=== PATIENT | female | born 1980 | race Caucasian/White ===

== ENCOUNTER 2021-02-05 09:25 | Day surgery (SDC) | payer BC ==
[~2021-02-05] VITALS: Ht 160 cm; Wt 75.0 kg
[~2021-02-05 09:25] MED LIST: BENADRYL25 MG PO; BROMOCRIPTINE2.5 MG PO; COZAAR100 MG PO; CYTOMEL5 MCG PO; EFFEXOR XR75 MG PO; HYDROCHLOROTH12.5 MG PO; LEVOTHYROXINE88 MC1 PO; ORTHO TRI-CYCL1 EACH PO
--- NOTE | 2021-02-05 12:44 | NUR ---
02/05/21 1244 Merry Nixon 1224 PT ARRIVED IN PACU SLEEPY WITH NO C/O'S. 1235 C/O ABD PAIN 12/04. DECLINED MEDICINE AT THIS TIME. 1245 RESTING. REU.
--- NOTE | 2021-02-05 13:15 | NUR ---
PT IS BACK TO DS FROM PACU. SHE IS BACK TO HER BASELINE. WATER ON BEDSIDE TABLE. SIGNIFICANT OTHER IS AT THE BEDSIDE. CALL LIGHT WITHIN REACH. NO ADDITIONAL NEEDS AT THIS TIME.
[2021-02-05] MEDS ORDERED: IBUPROFEN800 MG PO (13:31)
[2021-02-05] MEDS ORDERED: PERCOCET 5-3251 EACH PO (13:31)
[2021-02-05] MEDS ORDERED: ONDANSETRON ODT8 MG PO (13:32)
--- NOTE | 2021-02-05 14:41 | NUR ---
PT RECIEVES LUNCH.
--- NOTE | 2021-02-05 15:07 | NUR ---
LE 1500: PT REQUESTS TO GET UP TO USE THE BATHROOM. SHE IS TOLERATING WATER AND FOOD. SHE IS ABLE TO AMBUALTE HERSELF TO THE BATHROOM AND BACK TO BED. SHE INDICATES THAT SHE WOULD LIKE TO GO HOME AT THIS TIME. SHE HAS MET ALL DC CRITERIA.
--- NOTE | 2021-02-05 15:14 | NUR ---
PT IS GIVEN VERBAL DC INSTRUCTIONS WITH SIGNIFICANT OTHER PRESENT. THEY BOTH VERBALIZE UNDERSTANDING. QUESTIONS ARE AKSED AND ANSWERED. PT IS TAKEN TO PERSONAL CAR VIA . SHE IS ABLE TO TRANSFER HERSELF FROM WC TO CAR.
--- NOTE | 2021-02-06 20:17 | OR ---
[facility] [address], [place] [address] Signed DATE OF OPERATION: 02/05/2021 SURGEON: Gladys Floyd MD PREOPERATIVE DIAGNOSES: Secondary dysmenorrhea, pelvic pain. POSTOPERATIVE DIAGNOSES: Secondary dysmenorrhea, pelvic pain, normal pelvis. PROCEDURE: Diagnostic laparoscopy. ANESTHESIA: General ET. ESTIMATED BLOOD LOSS: Minimal. DRAINS: None. INDICATIONS AND FINDINGS: The patient is a 40-year-old female who has been having worsening dysmenorrhea and pelvic pain despite use of control pills. She is having discomfort that lasts 2 to 3 weeks out of every month. At the time of surgery, exam under anesthesia was normal. The pelvis was completely normal at the time of laparoscopy as well. There was no evidence of endometriosis. DESCRIPTION OF PROCEDURE: The patient was prepped and draped in the dorsal lithotomy position. An open-sided speculum was placed. The anterior lip of the cervix was visualized and grasped with a single-tooth tenaculum. A Trae cannula was then placed and the speculum removed. Attention was then directed above. The infraumbilical area was injected with 0.5% Marcaine plain. An incision was made with a knife, and each layer was then serially elevated and incised until the fascia was opened and identified. Stay sutures were placed with 0 Vicryl. The peritoneum was opened bluntly. The Beltran was then placed and tied into place. Placement of the scope confirmed proper positioning. Following this, the abdomen was inflated with carbon dioxide. When the abdomen was appropriately distended, the secondary port was placed. This was placed laterally slightly below the Electronically Signed By: GLADYS FLOYD MD 02/06/212016 PATIENT NAME: LISSET PALACIOS OPERATIVE REPORT DATE OF : 78 REPORT #: [id number] PHYSICIAN: GLADYS FLOYD MD PCP: BRI PETERSEN REPORT IS CONFIDENTIAL AND NOT TO BE RELEASED WITHOUT AUTHORIZATION [facility] [address], [place] [address] Signed level of the umbilicus. This area was transilluminated, injected with the Marcaine, incision made with a knife and the trocar placed under direct vision. The pelvis was then thoroughly evaluated and there was no evidence of any endometriosis present. The appendix was also visualized and seen to be normal. The procedure was then terminated. The instruments were removed from the abdomen after allowing as much CO2 as possible to escape. The fascial incision was re-identified and closed with a running suture of 0 Vicryl. The stay sutures were tied across as well. The skin incisions were closed with subcuticular sutures of 3-0 Vicryl Rapide. Attention was then directed down below. The instruments were removed. The cervix was then re-visualized after placement of the speculum. There was no evidence of any ongoing bleeding and the procedure was terminated. The patient was taken to the recovery room in good condition. All sponge and needle counts were correct. MD JF Palacios/GAYLE /[id number] cc: Bri Petersen NP Copies: ~ Electronically Signed By: GLADYS FLOYD MD 02/06/212016 PATIENT NAME: LISSET PALACIOS OPERATIVE REPORT DATE OF : 78 REPORT #: [id number] PHYSICIAN: GLADYS FLOYD MD PCP: BRI PETERSEN REPORT IS CONFIDENTIAL AND NOT TO BE RELEASED WITHOUT AUTHORIZATION
== END 2021-02-05 15:20 | disposition home or self-care (01) ==
LOC: DS 09:25
PROVIDERS: ATTEND Obstetrics & Gynecology
PROC: 0UJD4ZZ Inspection of Uterus and Cervix, Percutaneous Endoscopic Approach (ICD-10-PCS; principal; 2021-02-05 09:30)
DX: N94.5 Secondary dysmenorrhea (principal); R10.2 Pelvic and perineal pain; I10 Essential (primary) hypertension; E03.9 Hypothyroidism, unspecified; Z30.41 Encounter for surveillance of contraceptive pills; Z88.5 Allergy status to narcotic agent; Z88.2 Allergy status to sulfonamides
CPT/HCPCS: 00840; J0131; J0330; J1100; J1644; J1885; J2405; J2704; J2765; J3010; J3475; J7121

== ENCOUNTER 2022-04-08 06:00 | Day surgery (SDC) | payer BC ==
[~2022-04-08] VITALS: Ht 160 cm; Wt 80.0 kg
--- NOTE | ~2022-04-08 | OR ---
[facility] [address], [place] [address] Draft DATE OF OPERATION: 04/08/2022 SURGEON: Gladys Floyd MD INFORMATION TECHNOLOGY PROFESSOR: Phong Yeung M.D. PREOPERATIVE DIAGNOSIS: Worsening dysmenorrhea, intolerance to hormonal medication. POSTOPERATIVE DIAGNOSES: 1. Worsening dysmenorrhea, intolerance to hormonal medication. 2. Normal pelvis. PROCEDURES: Laparoscopy with total laparoscopic hysterectomy with bilateral salpingectomy and cystoscopy. ANESTHESIA: General ET. ESTIMATED BLOOD LOSS: 25 mL. DRAINS: Luna catheter. INDICATIONS AND FINDINGS: The patient is a 42-year-old female, who has been having worsening dysmenorrhea. She has also had improved periods with the control pills, but is feeling terrible on them. She has previously used Mirena and did not feel well on this either. At this point, she desired definitive treatment. At the time of surgery, exam under anesthesia was normal. At the time of laparoscopy, the pelvis was normal. DESCRIPTION OF PROCEDURE: The patient was prepped and draped in the dorsal lithotomy position. A weighted speculum was placed. The anterior lip of the cervix was visualized and grasped with a single-tooth tenaculum. The cavity sounded to 8 cm. The endocervical canal was then dilated and a VCare cannula placed and the balloon inflated at the fundus. The tenaculum and speculum were removed. The cup was fitted over the cervix and a locking PATIENT NAME: LISSET PALACIOS OPERATIVE REPORT DATE OF : 78 REPORT #: [id number] PHYSICIAN: GLADYS FLOYD MD PCP: SUBHASH RICHARDSON REPORT IS CONFIDENTIAL AND NOT TO BE RELEASED WITHOUT AUTHORIZATION [facility] [address], [place] [address] Draft cap was fitted into place. Attention was directed above. The infraumbilical area was injected with 0.5% Marcaine plain. An incision was made with a knife. Each layer was serially elevated and incised until the fascia was opened and identified and stay sutures of 0-Vicryl were placed. Peritoneum was opened bluntly. The Beltran cannula was then placed and tied into place. Placement of the scope confirmed proper positioning. CO2 was then introduced in the abdomen. When the abdomen was appropriately distended secondary ports were placed. These were placed laterally and slightly below the level of the umbilicus. Each of these areas was transilluminated, injected with the Marcaine. Incision made with a knife and the trocars placed under direct vision. The left port was a 5 mm port and the right was a Veress needle, followed by the expanding port. Following this, evaluation of the pelvis confirmed the planned procedure was appropriate. The LigaSure [place] device was then used. The patient's left tube was identified and was the mesosalpinx was serially coagulated and divided and removed at the cornu and the specimen retrieved. Following this, the utero-ovarian ligament was serially coagulated and divided, followed by the round ligament. At this point, the anterior leaf of the peritoneum could be and incised anteriorly creating a partial bladder flap. The peritoneum was taken down posteriorly as well. The uterine vessels were then skeletonized and coagulated multiple times and divided. Following this, attention was directed to the patient's right side. The tube was removed in the same manner. The utero-ovarian pedicle was serially coagulated and divided as was the round ligament. The anterior peritoneum was divided allowing for completion of the bladder flap. The posterior peritoneum was taken down as well and this completed division posteriorly as well. The uterine vessels were skeletonized and coagulated multiple times and divided. Further dissection was done both posteriorly and anteriorly such that the cup could be seen and felt. Following this, attention was redirected to the patient's left side and a small amount of dissection was done at the uterine vessel area. Following this, the specimen was removed using the Sonicision device. This was started posteriorly and wrapped around on the patient's left side anteriorly and again posteriorly and wrapped around on the right to anterior. Following this, the specimen was retrieved vaginally intact. The vaginal canal was then packed with a glove with a lap tape, allowing the pneumoperitoneum to reaccumulate. The pelvis was then irrigated and inspected and the surgical field appeared hemostatic. The vaginal cuff was then closed using the Endo Stitch. Care was taken to incorporate the vaginal mucosa on each side. This was begun at the patient's right uterosacral ligament and run to the patient's left uterosacral ligament and back to the center. Following this, the pelvis was again visualized and good hemostasis was noted. The procedure was then terminated. The instruments were removed from the abdomen after allowing as much CO2 as possible to escape. The fascial incision was reidentified and closed with a running suture of 0-Vicryl. The stay sutures were tied across this as well. The skin incisions were closed with subcuticular sutures of 3-0 Vicryl Rapide. Attention was directed down below and the vaginal pack was removed. The Luna was removed and cystoscopy was done. She had received IV fluorescein. At the time of cystoscopy, the bladder was filled and PATIENT NAME: LISSET PALACIOS OPERATIVE REPORT DATE OF : 78 REPORT #: [id number] PHYSICIAN: GLADYS FLOYD MD PCP: SUBHASH RICHARDSON REPORT IS CONFIDENTIAL AND NOT TO BE RELEASED WITHOUT AUTHORIZATION [address] [place], [place] [address] Draft there was no evidence of any injury. Both of the ureteral orifices were identified and free spill of clear urine was noted bilaterally. There was no fluorescein seen at this point. Following this, the bladder was drained and the Luna catheter replaced. All sponge and needle counts were correct. She tolerated the procedure well and she was taken to the recovery room in good condition. Gladys Floyd MD PJW/BERNARDAL /[id number] cc: Phong Yeung MD Copies: PHONG YEUNG MD ~ PATIENT NAME: LISSET PALACIOS OPERATIVE REPORT DATE OF : 78 REPORT #: [id number] PHYSICIAN: GLADYS FLOYD MD PCP: SALVERDA,SUBHASH CONFERENCE PLANNING MANAGER REPORT IS CONFIDENTIAL AND NOT TO BE RELEASED WITHOUT AUTHORIZATION
[~2022-04-08 06:00] MED LIST changes: +IBUPROFEN800 MG PO; +ONDANSETRON ODT8 MG PO; +PERCOCET 5-3251 EACH PO
[2022-04-08] MEDS ORDERED: DULCOLAX5 MG PO (06:15)
[2022-04-08] MEDS ORDERED: ONE-A-DAY MENO1 EACH PO (06:15)
[2022-04-08] MEDS ORDERED: CALCIUM500 MG PO (06:15)
[2022-04-08] MEDS ORDERED: MOTRIN IB200 MG PO (10:44)
[2022-04-08] MEDS ORDERED: PERCOCET 5-3251 EACH PO (10:44)
[2022-04-08] MEDS ORDERED: ONDANSETRON ODT8 MG PO (10:45)
--- NOTE | 2022-04-09 15:35 | PATH ---
[facility] [address], [place] [address] Signed SPECIMEN(S): A UTERUS, CERVIX AND TUBES SPECIMEN SOURCE: A. UTERUS, CERVIX AND TUBES CLINICAL HISTORY: Secondary dysmenorrhea. TLH, BS, cysto. FINAL PATHOLOGIC DIAGNOSIS: Uterus, cervix, and bilateral fallopian tubes, hysterectomy and bilateral salpingectomy: - Cervix: No histopathologic abnormality. - Endometrium: Inactive endometrium. - Myometrium: No histopathologic abnormality. - Fallopian tubes: No histopathologic abnormality. - No evidence of malignancy. NAL:cml:C2NR MICROSCOPIC EXAMINATION: Histologic sections of all submitted blocks are examined by light microscopy. These findings, together with the gross examination, support the pathologic diagnosis. GROSS DESCRIPTION: The specimen, labeled "PF, uterus, cervix, bilateral fallopian tubes," is received in formalin and consists of uterus and cervix with and undesignated bilateral fallopian tubes. The uterus measures 4.1 cm cornu to cornu, 3.7 cm anterior to posterior and 7.1 cm superior to inferior. Serosal surface is pink-fuentes, smooth. Specimen weight 80 g. The ectocervix is pink-fuentes, smooth and measures 3.6 x 3.5 cm. Sectioning through the cervix reveals pink-fuentes, homogenous tissue. The endometrial cavity measures 2.3 x 2.0 cm. It is lined with pink-fuentes, smooth endometrium. Sectioning through the myometrium reveals pink-fuentes, homogenous tissue. No masses are grossly identified. The myometrium measures 1.6 cm in thickness. The endometrium measures less than 0.1 cm. Both fallopian tubes show fimbria and violaceous and smooth serosa. The first fallopian tube measures 5.0 x 0.6 cm. Second fallopian tube measures 5.0 cm in length and 0.6 cm in diameter. Sectioning through both fallopian tubes is grossly unremarkable. PATIENT NAME: LISSET PALACIOS PATHOLOGY DATE OF : 78 REPORT #: [id number] PHYSICIAN: ANIBAL MERA PCP: SUBHASH RICHARDSON REPORT IS CONFIDENTIAL AND NOT TO BE RELEASED WITHOUT AUTHORIZATION [facility] [address], [place] [address] Signed Cassette Summary: (A1) Cervix, real estate representative sections, posterior inked (A2) Endomyometrium, real estate representative sections (A3) First fallopian tube, real estate representative sections (A4) Second fallopian tube, real estate representative sections JS (under the direct supervision of a pathologist) The Gross Description was prepared using a voice recognition system. The report was reviewed for accuracy; however, sound-alike word errors, addition and/or deletions may occur. If there is any question about this report, please contact Client Services. PERFORMING LABORATORY: The technical component was performed by [facility], [address] [place] [id number] (CLIA# [id number]). [facility], [address] [address] (CLIA# [id number]). Diagnostician: Teresa Hedrick MD Pathologist Electronically Signed 04/09/2022 Copies: ~ PATIENT NAME: LISSET PALACIOS PATHOLOGY DATE OF : [birth year] REPORT #: [id number] PHYSICIAN: ANIBAL PATHOLOGY PCP: SUBHASH RICHARDSON REPORT IS CONFIDENTIAL AND NOT TO BE RELEASED WITHOUT AUTHORIZATION
== END 2022-04-08 14:20 | disposition home or self-care (01) ==
LOC: DS 06:00
PROVIDERS: ATTEND Obstetrics & Gynecology
PROC: 0UT94ZZ Resection of Uterus, Percutaneous Endoscopic Approach (ICD-10-PCS; principal; 2022-04-08 07:00)
PROC: 0UT74ZZ Resection of Bilateral Fallopian Tubes, Percutaneous Endoscopic Approach (ICD-10-PCS; 2022-04-08 07:00)
DX: N85.02 Endometrial intraepithelial neoplasia [EIN] (principal); Z88.5 Allergy status to narcotic agent; Z88.2 Allergy status to sulfonamides
CPT/HCPCS: J0690; J1100; J1644; J1790; J1885; J2001; J2250; J2405; J2704; J2765; J3010